=== PATIENT | male | born 1955 | race Caucasian/White ===

== ENCOUNTER → 2018-03-02 | Outpatient (CLI) | payer BC ==
--- NOTE | 2018-03-05 07:26 | XR ---
EXAMINATION TYPE: XR abdomen 2V DATE OF EXAM: 03/02/2018 CLINICAL DATA: 62 year-old male left upper quadrant pain, [facility] COMPARISON: None FINDINGS: Lung bases are clear. No evidence for free intraperitoneal air. Couple small air-fluid levels are present in the upper abdomen, probably in the colon. Mild scattered stool burden. No dilated small bowel or differential air-fluid levels seen. No suspicious calcifications identified. IMPRESSION: No evidence of bowel obstruction or free intraperitoneal air.
== END | disposition home or self-care (01) ==
LOC: RADXRYALE 16:51
PROVIDERS: ATTEND Family Medicine
DX: R10.12 Left upper quadrant pain (principal)
CPT/HCPCS: 74019

== ENCOUNTER 2018-09-21 09:12 | Day surgery (SDC) | payer BC ==
[2018-09-17 15:48] VITALS: BMI 29.9
[~2018-09-21 09:12] MED LIST: LACTATED RINGERS 1,000 ML IV SCH
[2018-09-21 09:46] VITALS: TEMP 98.3
[2018-09-21] MEDS ORDERED: LIDOCAINE 1% 20 ML VIAL (10MG/ML) FOR IV START INTRADERMA ONE (09:54)
[2018-09-21] MEDS ORDERED: fentaNYL (PF) 50 MCG/ML 2 ML AMP ONE (10:24)
[2018-09-21] MEDS ORDERED: PROPOFOL 10 MG/ML 20 ML VIAL IV ONE (10:24)
[2018-09-21] MEDS ORDERED: MIDAZOLAM 2 MG/2 ML VIAL ONE (10:24)
--- NOTE | 2018-09-21 10:44 | P.PCN ---
Date of Procedure: 09/21/18 Procedure(s) Performed: BRIEF HISTORY: Patient is a 63-year-old pleasant white male male, scheduled for an elective colonoscopy as a part of screening for colorectal neoplasia. PROCEDURE PERFORMED: Colonoscopy with snare polypectomy. PREOPERATIVE DIAGNOSIS: Screening for colon cancer. IV sedation per Anesthesia. PROCEDURE: After informed consent was obtained, the patient, was brought into the endoscopy unit. IV sedation was administered by Anesthesia under continuous monitoring. Digital rectal examination was normal. Initially the Olympus CF-160 flexible video colonoscope was then inserted in the rectum, gradually advanced into the cecum without any difficulty. Careful examination was performed as the scope was gradually being withdrawn. Ileocecal valve and the appendiceal orifice were visualized and appeared normal. Prep was excellent. Mucosa of the cecum, ascending colon, transverse colon, appeared normal. In the descending colon there was a 5 mm sessile polyp that was removed by snare polypectomy. In the rectum; there was another 5 mm sessile polyp removed by snare polypectomy. Rest of the descending colon, sigmoid colon, and rectum appeared normal. Retroflexion was performed in the rectum and no lesions were seen. The patient tolerated the procedure well. IMPRESSION: 5 mm sessile descending colon polyp status post polypectomy 5 mm sessile rectosigmoid polyp status post snare polypectomy RECOMMENDATIONS: Findings of this examination were discussed with the patient as well as his family. He was advised to follow with the biopsy results. If the biopsy shows an adenoma he can have a repeat colonoscopy in 5 years.
[2018-09-21 10:51] VITALS: PULSE 60
[2018-09-21 11:05] VITALS: BP 127/75; RESP 18
== END 2018-09-21 11:34 | disposition home or self-care (01) ==
LOC: ORWHC2ENDO 09:12
PROVIDERS: ATTEND Internal Medicine Gastroenterology
DX: Z12.11 Encounter for screening for malignant neoplasm of colon (principal); D12.2 Benign neoplasm of ascending colon; K62.1 Rectal polyp; N40.0 Benign prostatic hyperplasia without lower urinary tract symptoms; F17.200 Nicotine dependence, unspecified, uncomplicated; Z79.82 Long term (current) use of aspirin; Z79.899 Other long term (current) drug therapy
CPT/HCPCS: 88305; 45385; J2250; J3010; J2704

== ENCOUNTER → 2023-02-17 | Outpatient (CLI) | payer MEDICARE ==
--- NOTE | 2023-02-17 10:06 | US ---
EXAMINATION TYPE: US abdomen limited DATE OF EXAM: 02/17/2023 COMPARISON: NONE CLINICAL INDICATION: Male, 67 years old with history of R10.11 RIGHT UPPER QUADRANT PAIN; RUQ pain n/ v yancy sunil, and new years sunil TECHNIQUE: Multiple sonographic images of the right upper quadrant are obtained. FINDINGS: EXAM MEASUREMENTS: Liver Length: 14.4 cm Gallbladder Wall: 0.2 cm CBD: 0.1 cm Right Kidney: 9.9x4.2x4.9 cm [employer] NOTES: Pancreas: Tail obscured by overlying bowel gas Liver: two cystic areas measured: 0.9x0.7x1.1cm 2.1x2.0x1.4 Gallbladder: wnl Evidence for sonographic Maldonado's sign: Yes CBD: wnl Right Kidney: wnl exam slightly limited by overlying bowel gas IMPRESSION: 1. Hepatic cysts.
== END | disposition home or self-care (01) ==
LOC: RADUSWWP 08:05
PROVIDERS: ATTEND Family Medicine
DX: K76.89 Other specified diseases of liver (principal); R19.7 Diarrhea, unspecified
CPT/HCPCS: 76705